=== PATIENT | male | born 1980 | race Caucasian/White ===

== ENCOUNTER → 2016-07-19 | Outpatient (CLI) | payer OTHER ==
[2016-01-10 09:32] VITALS: BP 143/91
[~2016-07-19] MED LIST: ASPI-482 PO; BACL10TA PO; BACL20TA PO; CLON0.5T PO; HYDR12.53 PO; IOHEXOL 300 MG/ML 100ML VIAL. IV ONE; LISI10TA2 PO; NAPR500T PO; OMEP20TA PO; OXYC-250 PO; baclofen
--- NOTE | 2016-07-20 11:40 | KCIC ---
PROCEDURE CT abdomen with contrast HISTORY Renal lesion seen on outside exam TECHNIQUE After administration of intravenous contrast, CT imaging was performed of the abdomen. Multiplanar reconstruction images are submitted. No oral contrast was given. Pelvis was not imaged with this exam.Exposure: One or more of the following individualized dose reduction techniques were utilized for this exam: 1. Automated exposure control. 2. Adjustment of the mA and/or kV according to patient size. 3. Use of iterative reconstruction technique. Contrast: 100 cc Omnipaque 300 COMPARISON June 02, 2013 exam and also more recent outside facility June 07, 2016 CT abdomen exam. FINDINGS As seen on the recent exam, there is a hypodense lesion of the superior right kidney on the order of 2.6 cm transverse by 3 centimeters cc by approximately 2.9 centimeters AP, does not have density measurements of a simple cyst. Density measurements on the initial post-contrast images are approximately 60 Hounsfield units, 44 Hounsfield units on delayed images. This is fairly similar compared with the recent exam, was not present on 2013 exam. There is also a small hypodense lesion of the superior left kidney on the order of 1.1 cm in size although density measurements suggestive of a cyst up to 5 Hounsfield units. Both kidneys enhance without hydronephrosis. There is hepatic steatosis. There is a vague hypodense focus of the central spleen although similar comparing with 2014 exam. There is no new abnormality of the pancreas or gallbladder. Visualized bowel is not dilated. There is no free air or free fluid. At least a segment of normal proximal appendix is visualized, not fully included. No significantly enlarged nodes are identified. There is no adrenal nodularity. There are some thin-walled air cysts of the visualized lung bases. IMPRESSION 1. As seen on recent outside facility exam, there is a hypodense lesion of the superior right kidney, does not have features of a simple cyst. No precontrast images were obtained with this exam to evaluate for degree of enhancement. Solid mass such as renal cell carcinoma is certainly possible, other consideration of complex or hemorrhagic cyst. Sonographic evaluation is advised. There is a small cyst of the superior left kidney. 2. There is hepatic steatosis. 3. Vague nonspecific hypodense lesion of the central spleen is similar comparing with 2014 exam. Electronically signed by: Vlad Araujo MD (Jul 20, 2016 11:38:47)
== END | disposition home or self-care (01) ==
LOC: KCIC CT 09:20
PROVIDERS: ATTEND Family Medicine
DX: N28.89 Other specified disorders of kidney and ureter (principal)
CPT/HCPCS: 74160; Q9967

== ENCOUNTER → 2016-08-11 | Outpatient (CLI) | payer OTHER ==
[2016-01-10 09:32] VITALS: BP 143/91
[~2016-08-11] MED LIST changes: -IOHEXOL 300 MG/ML 100ML VIAL. IV ONE
--- NOTE | 2016-08-11 16:41 | RAD ---
Renal ultrasound, 08/11/2016: History: Abnormal CT The right kidney measures 10.4 cm in length while the left kidney measures 11.2 cm. There is no evidence of hydronephrosis. The mass seen in the upper pole the right kidney on the CT study of 07/19/2006 was not visualized sonographically. This is apparently on a technical basis. The known small cyst in the upper pole the left kidney was also not visualized on this ultrasound exam. The partially filled urinary bladder is unremarkable. IMPRESSION: The patient's known renal lesions were not visualized sonographically, presumably due to technical factors. MR scanning with gadolinium or multiphase CT scanning is suggested for further evaluation.
== END | disposition home or self-care (01) ==
LOC: US 15:05
PROVIDERS: ATTEND Family Medicine
DX: R93.421 Abnormal radiologic findings on diagnostic imaging of right kidney (principal); R93.422 Abnormal radiologic findings on diagnostic imaging of left kidney
CPT/HCPCS: 76770

== ENCOUNTER 2016-08-19 22:37 | Emergency (ER) | payer OTHER ==
[~2016-08-19] VITALS: Ht 157.5 cm; Wt 93.9 kg
--- NOTE | 2016-08-19 23:14 | PHYS DOC ---
Past Medical History Past Medical History: Anxiety, Depression, GERD, Hypertension, Other Additional Past Medical Histor: Muscle spasm,Emphysema,R)shoulder-"torn ligamen ,sleep apnea,CHRONIC BACK PN Past Surgical History: Other Alcohol Use: Occasionally Drug Use: Marijuana Adult General Chief Complaint Chief Complaint: HYPERTENSION HPI HPI Patient is a 36 year old male who presents with complaint of headache and high blood pressure. Patient states his symptoms started worsening over the past 2-3 hours but states that he started having headaches 2 days ago. Patient states that headaches have been off and on. Patient went to see his primary physician today and he was noted to have mildly elevated blood pressure. Patient is on lisinopril and hydrochlorothiazide for treatment. The patient's primary physician is Dr. Tovar. She recommended that the patient be increased on his lisinopril from 5mg to 10mg. Because worsening symptoms the patient came to the emergency department for evaluation. Patient denies any chest pain or abdominal pain at this time. Patient states that his dizziness does worsen when he stands up. Patient denies any fevers or unilateral weakness associated with his symptoms. Review of Systems Review of Systems Constitutional: Denies fever or chills [] Eyes: Denies change in visual acuity, redness, or eye pain [] HENT: Denies nasal congestion or sore throat [] Respiratory: Denies cough or shortness of breath [] Cardiovascular: Denies chest pain or edema [] GI: Denies abdominal pain, nausea, vomiting, bloody stools or diarrhea [] : Denies dysuria or hematuria [] Musculoskeletal: Denies back pain or joint pain [] Integument: Denies rash or skin lesions [] Neurologic: Headache, dizziness, denies focal weakness or sensory changes [] Current Medications Current Medications Current Medications Medications (Trade) Dose Ordered Sig/Tai Start Time Stop Time Status Last Admin Dose Admin Lorazepam (Ativan) 2 mg 1X ONCE 08/19/16 23:30 08/19/16 23:31 DC 08/19/16 23:53 2 MG Oxycodone/ Acetaminophen (Percocet 10/325) 1 tab 1X ONCE 08/20/16 00:15 08/20/16 00:16 UNV Allergies Allergies Allergies Coded Allergies Type Severity Reaction Last Updated Verified No Known Drug Allergies 05/01/14 No Physical Exam Physical Exam Constitutional: Alert, afebrile, appears anxious. [] HENT: Normocephalic, atraumatic, bilateral external ears normal, oropharynx moist, no oral exudates, nose normal. [] Eyes: PERRLA, EOMI, conjunctiva normal, no discharge. [] Neck: Normal range of motion, no tenderness, supple, no stridor. [] Cardiovascular:Heart rate regular rhythm, no murmur [] Lungs & Thorax: Bilateral breath sounds clear to auscultation [] Abdomen: Bowel sounds normal, soft, no tenderness, no masses, no pulsatile masses. [] Skin: Warm, dry, no erythema, no rash. [] Back: No tenderness, no CVA tenderness. [] Extremities: No tenderness, no cyanosis, no clubbing, ROM intact, no edema. [] Neurologic: Alert and oriented X 3, normal motor function, normal sensory function, no focal deficits noted. [] Current Patient Data Vital Signs Vital Signs Date Time Temp Pulse Resp B/P Pulse Ox O2 Delivery O2 Flow Rate FiO2 08/19/16 22:47 97.9 55 25 158/104 94 Room Air 97.9 Lab Values Laboratory Tests Test 08/19/16 23:48 08/19/16 23:52 08/19/16 23:53 White Blood Count 8.0x10^3/uL (4.0-11.0) Red Blood Count 4.77x10^6/uL (4.30-5.70) Hemoglobin 15.6g/dL (13.0-17.5) Hematocrit 45.1% (39.0-53.0) Mean Corpuscular Volume 95fL (79-100) Mean Corpuscular Hemoglobin 33pg (25-35) Mean Corpuscular Hemoglobin Concent 35g/dL (31-37) Red Cell Distribution Width 13.7% (11.5-14.5) Platelet Count 221x10^3/uL (140-400) Neutrophils (%) (Auto) 57% (31-73) Lymphocytes (%) (Auto) 30% (24-48) Monocytes (%) (Auto) 8% (0-9) Eosinophils (%) (Auto) 5% (0-3) H Basophils (%) (Auto) 1% (0-3) Neutrophils # (Auto) 4.5x10^3uL (1.8-7.7) Lymphocytes # (Auto) 2.4x10^3/uL (1.0-4.8) Monocytes # (Auto) 0.7x10^3/uL (0.0-1.1) Eosinophils # (Auto) 0.4x10^3/uL (0.0-0.7) Basophils # (Auto) 0.0x10^3/uL (0.0-0.2) Sodium Level 139mmol/L (136-145) Potassium Level 3.1mmol/L (3.5-5.1) L Chloride Level 98mmol/L (98-107) Carbon Dioxide Level 28mmol/L (21-32) Anion Gap 13 (6-14) 21mmol/L (6-14) H Blood Urea Nitrogen 17mg/dL (8-26) Creatinine 0.8mg/dL (0.7-1.3) Estimated GFR (Cockcroft-Gault) 110.7 Glucose Level 93mg/dL (70-99) 89mg/dL (70-99) Calcium Level 8.7mg/dL (8.5-10.1) POC Troponin I 0.00ng/ml (<0.08) POC Hemoglobin 15.6g/dL (14-18) POC Hematocrit 46% (37-52) POC Sodium 138mmol/L (135-145) POC Potassium 3.1mmol/L (3.5-5.0) L POC Chloride 98mmol/L (98-110) POC Total CO2 23mmol/L (23-32) POC Blood Urea Nitrogen 15mg/dL (8-26) POC Creatinine 0.8mg/dL (0.5-1.4) POC Ionized Calcium (Nash) 1.01mmol/L (1.13-1.32) L Laboratory Tests 08/19/16 23:48 Laboratory Tests 08/19/16 23:48 08/19/16 23:53 EKG EKG Interpreted by me: Heart rate 55, sinus rhythm, normal intervals, normal axis, no acute ST/T-wave abnormalities present [] Radiology/Procedures Radiology/Procedures Not performed [] Course & Med Decision Making Course & Med Decision Making Pertinent Labs and Imaging studies reviewed. (See chart for details) Patient was given Ativan in the emergency department. Patient's blood pressure improved to 147/87. Patient states his symptoms have improved at this time. Patient states that he is unable to provide urine sample at this time but denies any lower abdominal pain and states that he is not retaining urine. Patient assures me that he has not taken any substances other than his prescription medications that would affect his blood pressure. Patient's metabolic panel and troponin were unremarkable. The patient states that he has not been taking lisinopril daily. I advised that the patient continue on 5 mg of oral lisinopril and 12.5 mg of HCTZ daily and follow-up with the patient's primary doctor in the next 4-5 days. Advised return to the emergency department for any worsening symptoms. Patient voiced understanding and in agreement with treatment plan. Dragon Disclaimer Dragon Disclaimer This electronic medical record was generated, in whole or in part, using a voice recognition dictation system. Departure Departure Impression: Primary Impression: Accelerated hypertension Disposition: 01 HOME, SELF-CARE Condition: IMPROVED Referrals: KASSANDRA TOVAR MD (PCP) Patient Instructions: Hypertension Additional Instructions: Be sure to take lisinopril and hydrochlorothiazide daily to help control your blood pressure. Follow up with Dr. Tovar in 4-5 days and return to emergency department for any worsening symptoms. MIKAELA RIVERA MD Aug 19, 2016 23:14
[2016-08-19] MEDS ORDERED: LORAZEPAM 2 MG/ML VIAL IV ONE (23:30)
[2016-08-19 23:55] LABS: BASO % 1 % (0-3); EOS % 5 % (0-3); HEMATOCRIT 45.1 % (39.0-53.0); HEMOGLOBIN 15.6 g/dL (13.0-17.5); LYMPH # 2.4 x10^3/uL (1.0-4.8); LYMPH % 30 % (24-48); MEAN CORPUSCULAR HEMOGLOBIN 33 pg (25-35); MEAN CORPUSCULAR HGB CONC 35 g/dL (31-37); MEAN CORPUSCULAR VOLUME 95 fL (79-100); MONO % 8 % (0-9); NEUT % 57 % (31-73); PLATELET COUNT 221 x10^3/uL (140-400); RED BLOOD COUNT 4.77 x10^6/uL (4.30-5.70); RED CELL DISTRIBUTION WIDTH 13.7 % (11.5-14.5)
[2016-08-20] VITALS: BP 147/87
[2016-08-20 00:02] LABS: POTASSIUM ISTAT 3.1 mmol/L (3.5-5.0)
[2016-08-20 00:06] LABS: CALCIUM 8.7 mg/dL (8.5-10.1); CREATININE 0.8 mg/dL (0.7-1.3); GFR 110.7; POTASSIUM 3.1 mmol/L (3.5-5.1)
[2016-08-20 00:24] LABS: BILIRUBIN,URINE NEGATIVE (NEG); GLUCOSE,URINE NEGATIVE (NEG); NITRITE,URINE NEGATIVE (NEG); PH,URINE 6.5; PROTEIN,URINE NEGATIVE (NEG-TRACE); UROBILINOGEN,URINE 0.2 mg/dL (0.2 mg/dL)
[2016-08-20 00:30] LABS: BARBITURATES NEG (NEG); BENZODIAZEPINES NEG (NEG); CANNABINOIDS POS (NEG); COCAINE NEG (NEG); ETHANOL, URINE POS (NEG); METHADONE NEG (NEG); OPIATES POS (NEG); PHENCYCLIDINE NEG (NEG)
[2016-08-20] MEDS ORDERED: OXYCODONE/APAP 10/325 TABLET. PO ONE (00:30)
[2016-08-20 00:33] LABS: BACTERIA,URINE 0 /HPF (0-FEW); RBC,URINE 0 /HPF (0-2); SQUAMOUS EPITHELIAL CELL,UR OCC /LPF; WBC,URINE 0 /HPF (0-4)
--- NOTE | 2016-08-20 09:16 | EKG ---
[facility] [address] [place] [address] Test Date: 2016-08-19 Test Time: 22:57:15 Pat Name: PENNIE MCCORMICK Department: Room: Gender: M Seaman Officer: : 1980 Requested By: MIKAELA RIVERA Order Number: [id number] Reading MD: Alyssa Teran Measurements Intervals [place] Rate: 55 P: 47 [place]: 134 QRS: 11 QRSD: 98 T: 10 QT: 396 QTc: 381 Interpretive Statements SINUS RHYTHM NORMAL ECG RI6.01 Compared to ECG 12/09/2015 19:45:39 No significant changes Electronically Signed On 08-21-2016 19:04:56 CDT by Alyssa Teran
== END 2016-08-20 00:23 | disposition home or self-care (01) ==
LOC: ER 22:37
DX: I10 Essential (primary) hypertension (principal); F41.9 Anxiety disorder, unspecified; F32.9 Major depressive disorder, single episode, unspecified; K21.9 Gastro-esophageal reflux disease without esophagitis; G89.29 Other chronic pain; F12.10 Cannabis abuse, uncomplicated
CPT/HCPCS: 36415; 80047; 80048; 80305; 81001; 84484; 85027; 93005; 96374; 99285; J2060; G0481

== ENCOUNTER → 2017-06-21 | Outpatient (CLI) | payer OTHER | END | disposition home or self-care (01) | LOC: KCIC 10:47 | DX: S49.80XD Other specified injuries of shoulder and upper arm, unspecified arm, subsequent encounter (principal); M25.512 Pain in left shoulder; M25.511 Pain in right shoulder; M54.5 Low back pain; X58.XXXD Exposure to other specified factors, subsequent encounter; Y92.410 Unspecified street and highway as the place of occurrence of the external cause | CPT/HCPCS: 72100; 73030; 73562 ==

== ENCOUNTER → 2017-07-06 | Outpatient (CLI) | payer OTHER | END | disposition home or self-care (01) | LOC: KCIC MRI 12:08 | DX: M51.36 Other intervertebral disc degeneration, lumbar region (principal); M47.896 Other spondylosis, lumbar region; M25.78 Osteophyte, vertebrae; R60.0 Localized edema | CPT/HCPCS: 72148 ==